=== PATIENT | female | born 1985 ===

== ENCOUNTER 2021-03-17 14:09 | Emergency (ER) | payer OTHER ==
[~2021-03-17] VITALS: Ht 165.1 cm; Wt 59.1 kg
[2021-03-17 14:20] VITALS: BP 119/77; Ht 165.1 cm; Wt 59.1 kg
== END 2021-03-17 16:34 | disposition left against medical advice (07) ==
LOC: D.ER 14:09
DX: Z76.0 Encounter for issue of repeat prescription (principal)